=== PATIENT | male | born 1995 | race American Indian/Alaskan Native ===

== ENCOUNTER 2019-12-30 11:35 | Emergency (ER) | payer OTHER ==
[~2019-12-30] VITALS: Ht 177.8 cm; Wt 66.8 kg
[2019-12-30] MEDS ORDERED: dayquill PO (11:46)
[2019-12-30] MEDS ORDERED: BENZ200C70 PO (14:04)
[2019-12-30] MEDS ORDERED: AFRI0.058 (14:04)
[2019-12-30 14:13] VITALS: BP 106/75
== END 2019-12-30 14:14 | disposition home or self-care (01) ==
LOC: M ED 11:35
DX: J06.9 Acute upper respiratory infection, unspecified (principal); B34.9 Viral infection, unspecified; Z79.899 Other long term (current) drug therapy

== ENCOUNTER 2020-11-08 13:16 | Emergency (ER) | payer OTHER ==
[~2020-11-08] VITALS: Ht 177.8 cm; Wt 61.4 kg
[~2020-11-08 13:16] MED LIST: AFRI0.058; BENZ200C70 PO; dayquill PO
--- NOTE | 2020-11-08 15:09 | REP ---
INDICATION: pain after injury COMPARISON: None. TECHNIQUE: There are four views. FINDINGS: There is no fracture or dislocation. Mineralization and joint spaces are normal. There are no calcifications or foreign bodies. IMPRESSION: Negative right hand. <Electronically signed by Rc Spain > 11/08/20 [id number]
[2020-11-08] MEDS ORDERED: ACETAMINOPHEN TAB 650MG DOSE (2X325MG) PO ONE (15:55)
--- NOTE | 2020-11-08 17:45 | REPVR ---
PROCEDURE INFORMATION: Exam: CT Head Without Contrast Exam date and time: 11/08/2020 4:29 PM Age: 25 years old Clinical indication: Injury or trauma; Other: Unk; Blunt trauma (contusions or hematomas) TECHNIQUE: Imaging protocol: Computed tomography of the head without contrast. Axial and coronal reformatted images were created and reviewed. Radiation optimization: All CT scans at this facility use at least one of these dose optimization techniques: automated exposure control; mA and/or kV adjustment per patient size (includes targeted exams where dose is matched to clinical indication); or iterative reconstruction. COMPARISON: No relevant prior studies available. FINDINGS: Brain: No CT evidence of acute intracranial hemorrhage or acute territorial infarction. No significant mass effect or midline shift. Basal cisterns patent. Cerebral ventricles: Normal in size and configuration. Paranasal sinuses: Unremarkable. No fluid levels. Mastoid air cells: Grossly unremarkable. Bones/joints: No acute osseous abnormality. Soft tissues: Grossly unremarkable. IMPRESSION: No CT evidence of acute intracranial pathology. Electronically signed by: Mo Barber On 11/08/2020 17:45:13 PM
--- NOTE | 2020-11-08 17:48 | REPVR ---
PROCEDURE INFORMATION: Exam: CT Maxillofacial Without Contrast Exam date and time: 11/08/2020 4:29 PM Age: 25 years old Clinical indication: Injury or trauma; Other: Unk; Blunt trauma (contusions or hematomas); Orbit/periorbital; Bilateral TECHNIQUE: Imaging protocol: Computed tomography images of the face without contrast. Axial, coronal and sagittal reformatted images were created and reviewed. Radiation optimization: All CT scans at this facility use at least one of these dose optimization techniques: automated exposure control; mA and/or kV adjustment per patient size (includes targeted exams where dose is matched to clinical indication); or iterative reconstruction. COMPARISON: No relevant prior studies available. FINDINGS: Orbital cavity: Orbits are normal. Globes are unremarkable. Bones/joints: No acute fracture. Paranasal sinuses: Mild polypoid right maxillary sinus mucosal thickening. Soft tissues: Mild right greater than left periorbital soft tissue swelling. IMPRESSION: 1. No acute facial bone fracture. 2. Additional findings, as above. Electronically signed by: Mo Barber On 11/08/2020 17:47:40 PM
--- NOTE | 2020-11-08 17:49 | REPVR ---
PROCEDURE INFORMATION: Exam: CT Cervical Spine Without Contrast Exam date and time: 11/08/2020 4:29 PM Age: 25 years old Clinical indication: Injury or trauma; Other: Unk; Blunt trauma TECHNIQUE: Imaging protocol: Computed tomography images of the cervical spine without contrast. Axial, coronal and sagittal reformatted images were created and reviewed. Radiation optimization: All CT scans at this facility use at least one of these dose optimization techniques: automated exposure control; mA and/or kV adjustment per patient size (includes targeted exams where dose is matched to clinical indication); or iterative reconstruction. COMPARISON: No relevant prior studies available. FINDINGS: Bones/joints: Straightening of the normal cervical lordosis. No CT evidence of acute fracture, dislocation or subluxation. Alignment anatomic. Vertebral body heights maintained. Discs/Spinal canal/Neural foramina: Intervertebral disc spaces preserved. No significant spinal canal or neural foraminal stenosis. Lungs: Grossly unremarkable. Soft tissues: Grossly unremarkable. IMPRESSION: 1. No CT evidence of acute cervical spine traumatic injury. 2. Additional findings, as above. Electronically signed by: Mo Barber On 11/08/2020 17:49:22 PM
[2020-11-08 18:22] VITALS: BP 128/80
== END 2020-11-08 18:20 | disposition home or self-care (01) ==
LOC: M ED 13:16
DX: S60.221A Contusion of right hand, initial encounter (principal); S00.12XA Contusion of left eyelid and periocular area, initial encounter; W01.0XXA Fall on same level from slipping, tripping and stumbling without subsequent striking against object, initial encounter; Y92.89 Other specified places as the place of occurrence of the external cause

== ENCOUNTER 2021-01-24 10:27 | Emergency (ER) | payer OTHER ==
[~2021-01-24] VITALS: Ht 177.8 cm; Wt 65.3 kg
--- OUTSIDE RECORDS SUMMARY | 2021-01-24 10:33 | CCD ---
Author Author [facility] Organization [facility] Address Unknown Phone Unavailable Support Name Relationship Address Phone [facility] Next Of Kin [address] [place] [address] Unavailable Re-disclosure Warning The records that you are about to access may contain information from federally-assisted alcohol or drug abuse programs. If such information is present, then the following federally mandated warning applies: This information has been disclosed to you from records protected by federal confidentiality rules (42 CFR part 2). The federal rules prohibit you from making any further disclosure of this information unless further disclosure is expressly permitted by the written consent of the person to whom it pertains or as otherwise permitted by 42 CFR part 2. A general authorization for the release of medical or other information is NOT sufficient for this purpose. The Federal rules restrict any use of the information to criminally investigate or prosecute any alcohol or drug abuse patient.The records that you are about to access may contain highly sensitive health information, the redisclosure of which is protected by Article 27-F of the [facility] Public Health law. If you continue you may have access to information: Regarding HIV / AIDS; Provided by facilities licensed or operated by the [facility] Office of Mental Health; or Provided by the [facility] Office for People With Developmental Disabilities. If such information is present, then the following [facility] mandated warning applies: This information has been disclosed to you from confidential records which are protected by state law. State law prohibits you from making any further disclosure of this information without the specific written consent of the person to whom it pertains, or as otherwise permitted by law. Any unauthorized further disclosure in violation of state law may result in a fine or skilled nursing sentence or both. A general authorization for the release of medical or other information is NOT sufficient authorization for further disc losure. Medications No Information Insurance Providers Payer name Policy type / Coverage type Policy ID Covered republican ID Covered republican's relationship to shabazz Policy Sh[employer] Plan [facility] [employer] [id number] Problems, Conditions, and Diagnoses No Information Surgeries/Procedures No Information Results No Information Social History No Information
[2021-01-24] MEDS ORDERED: IBUPROFEN 800 MG TAB PO ONE (12:35)
--- NOTE | 2021-01-24 13:42 | REP ---
INDICATION: R/O TMJ DISLOCATION. COMPARISON: None. TECHNIQUE: Multiple views FINDINGS: Limited plain film examination of the temporomandibular joints poorly visualizes the right temporomandibular joint. Subluxation or even dislocation cannot be ruled out. IMPRESSION: The right TMJ is poorly visualized. CT is recommended. <Electronically signed by Tang Richmond > 01/24/21 [id number]
[2021-01-24] MEDS ORDERED: PERCOCET 5MG/325MG TAB PO ONE (14:10)
--- NOTE | 2021-01-24 14:44 | REP ---
INDICATION: R/O TMJ DISLOCATION, BILATERAL. COMPARISON: 11/08/2020 TECHNIQUE: 3 x 3 mm increments helical scanning reconstructed in both sagittal and coronal planes. FINDINGS: The proximal right mandible is fractured just distal to the mandibular condyle. The mandibular condyle is subluxed medially and inferiorly from the temporomandibular joint. No additional fractures are identified. The paranasal sinuses and mastoid air cells are clear. IMPRESSION: Right mandibular fracture subluxation as described above. <Electronically signed by Tang Richmond > 01/24/21 [id number]
[2021-01-24] MEDS ORDERED: AUGM875T28 PO (16:27)
[2021-01-24] MEDS ORDERED: PERC5TAB12 PO (16:27)
[2021-01-24] MEDS ORDERED: IBUP80TA PO (16:27)
[2021-01-24 16:33] VITALS: BP 124/77
== END 2021-01-24 16:37 | disposition home or self-care (01) ==
LOC: M ED 10:27
DX: S02.601A Fracture of unspecified part of body of right mandible, initial encounter for closed fracture (principal); S03.02XA Dislocation of jaw, left side, initial encounter; S00.31XA Abrasion of nose, initial encounter; W10.8XXA Fall (on) (from) other stairs and steps, initial encounter; Y92.89 Other specified places as the place of occurrence of the external cause; Z91.018 Allergy to other foods

== ENCOUNTER 2022-01-25 13:11 | Emergency (ER) | payer OTHER, SELFPAY ==
[~2022-01-25] VITALS: Ht 177.8 cm; Wt 69.3 kg
[~2022-01-25 13:11] MED LIST changes: -AFRI0.058; +AUGM875T28 PO; +IBUP80TA PO; +OXYM15SP2; +PERC5TAB12 PO
[2022-01-25 18:43] VITALS: BP 125/66
[2022-01-25] MEDS ORDERED: RABIES IMMUNE GLOBULIN 1500 INTERNATIONAL UNIT/5ML VIAL (90375) IM.IMMUN ONE (19:30)
[2022-01-25] MEDS ORDERED: RABIES VACCINE HUMAN 2.5 INTERNATIONAL UNITS/ML VIAL (90675) IM.IMMUN ONE (19:30)
== END 2022-01-25 20:27 | disposition home or self-care (01) ==
LOC: M ED 13:11
DX: Z20.3 Contact with and (suspected) exposure to rabies (principal); S30.871A Other superficial bite of abdominal wall, initial encounter; W55.81XA Bitten by other mammals, initial encounter; Y92.009 Unspecified place in unspecified non-institutional (private) residence as the place of occurrence of the external cause; Z91.018 Allergy to other foods